=== PATIENT | male | born 1960 | race Caucasian/White ===

== ENCOUNTER 2018-05-16 06:18 | Inpatient (IN) | payer SELFPAY ==
[2018-05-16 07:06] LABS: BASOPHILS % 0.6 (0.0-1.5); EOSINOPHILS % 0.7 % (0.0-6.8); MEAN CORPUSCULAR HEMOGLOBIN 34.2 pg (28.0-34.0); MEAN CORPUSCULAR VOLUME 100.2 fl (80.0-100.0); MONOCYTES % 9.5 % (0.0-11.0); NEUTROPHILS # 4.9 # k/uL (1.4-7.7)
[2018-05-16] MEDS ORDERED: KETOROLAC TROMETHAMINE 30 MG/1ML VIAL IVP ONE (07:15)
--- NOTE | 2018-05-16 07:15 | ED Physician Documentation ---
Abdominal Pain - HISTORIAN Historian: patient - HPI Stated Complaint: abd pain Chief Complaint: Abdominal Pain Additonal Information: Diana states that his abd has been hurting since yesterday. [place] that he needed to have a BM and felt constipated. Took some Ducolax yesterday afternoon. Had 3 small BM since then. Pain is perumbilical with some up radiation into the epigastric area. Has some pain with poaking his abd. Has not had a colonoscopy, no blood in stool . No nausea noted. Onset: days ago (yesterday) Duration: constant Timing: still present Context: denies: out of country travel, bad food Severity: moderate Quality: pain, aching Associated Symptoms: none, loss of appetite. denies: fever, chills, nausea, vomiting, bloody emesis, bloody stools, grossly bloody stools Exacerbated by: movements Relieved by: nothing Further Comments: yes (history of alcoholism) - ROS CONST: no problems GI/: constipation. denies: bloody urine, bloody stools, dark urine, problems urinating MS/SKIN/LYMPH: none - SOCIAL HX Smoking History: non-smoker, chew (3/4 can/day) Alcohol Use: heavy (10-12 beer daily) Drug Use: none - FAMILY HX Family History: other (DM, HTN) - PAST HX Past History: other (EtOHism, Atrail fibrillation,) Ischemic Bowel Risk Factors: none Other History: denies: abdominal aneurysm, intestinal obstruction Surgeries/Procedures: none Immunizations: referred to PCP Home Medications: Ambulatory Orders Medication Instructions Recorded Chlordiazepoxide HCl 25 mg PO TID PRN 05/16/18 Lisinopril [Prinivil] 20 mg PO QD 05/16/18 Metoprolol Succinate [Toprol XL] 100 mg PO D 05/16/18 Warfarin Sodium [Coumadin] 5 mg PO 1800 05/16/18 Allergies/Adverse Reactions: Allergies Allergy/AdvReac Type Severity Reaction Status Date / Time No Known Allergies Allergy Verified 05/16/18 14:00 - VITAL SIGNS Vital Signs: Vital Signs Temp Pulse Resp BP Pulse Ox 97.4 F L 88 16 155/102 99 05/19/18 14:00 05/19/18 14:00 05/19/18 14:00 05/19/18 14:00 05/19/18 14:00 - REVIEWED ASSESSMENTS Nursing Assessment Reviewed: Yes Vitals Reviewed: Yes Progress - Progress Progress: 09:11 Patient is resting quietly, pain is much improved at this time. ED Results Lab/Radiology - Lab Results Lab Results: Lab Results 05/16/18 05/16/18 05/16/18 08:28 07:00 07:00 WBC 7.90 K/ul K/ul (4.00-12.00) RBC 4.21 M/ul M/ul (3.90-5.20) Hgb 14.4 g/dL g/dL (12.0-18.0) Hct 42.2 % % (37.0-53.0) MCV 100.2 fl H fl (80.0-100.0) MCH 34.2 pg H pg (28.0-34.0) MCHC 34.1 g/dL g/dL (30.0-36.0) RDW 13.3 % % (11.3-14.3) Plt Count 412 K/mm3 H K/mm3 (130-400) Neut % (Auto) 62.0 % % (39.0-79.0) Lymph % (Auto) 25.0 % % (16.0-50.0) [place] % (Auto) 9.5 % % (0.0-11.0) Eos % (Auto) 0.7 % % (0.0-6.8) Baso % (Auto) 0.6 (0.0-1.5) Neut # (Auto) 4.9 # k/uL # k/uL (1.4-7.7) Lymph # (Auto) 2.0 # k/uL # k/uL (0.6-4.0) [place] # (Auto) 0.8 # k/uL # k/uL (0.0-0.9) Eos # (Auto) 0.0 # k/uL # k/uL (0.0-0.6) Baso # (Auto) 0.0 # k/uL # k/uL (0.0-0.5) Reactive Lymphs % 2.1 % % (0.0-5.0) Reactive Lymphs # 0.2 # k/uL # k/uL (0.0-0.8) Sodium 132 mmol/L L mmol/L (136-145) Potassium 3.3 mmol/L L mmol/L (3.5-5.1) Chloride 94 mmol/L L mmol/L (98-107) Carbon Dioxide 23 mmol/L mmol/L (22-30) BUN 6 mg/dL L mg/dL (9-20) Creatinine 0.80 mg/dL mg/dL (0.66-1.25) Estimated Creat Clear 110 Est GFR ( Amer) > 60 (60 - ) Est GFR (Non-Af Amer) > 60 (60 - ) Glucose 116 mg/dL H mg/dL (74-106) Calcium 9.4 mg/dL mg/dL (8.4-10.2) Total Bilirubin 0.4 mg/dL mg/dL (0.2-1.3) AST 35 U/L U/L (15-46) ALT 37 U/L U/L (13-69) Alkaline Phosphatase 75 U/L U/L (38-126) Total Protein 7.8 g/dL g/dL (6.3-8.2) Albumin 4.2 g/dL g/dL (3.5-5.0) Lipase 26620 U/L H U/L (23-300) Urine Color Yellow (YELLOW) Urine Appearance Clear (CLEAR) Urine pH 7.5 (5.0 - 8.0) Ur Specific [place] 1.015 (1.010-1.030) Urine Protein Negative mg/dL mg/dL (NEGATIVE) Urine Ketones Negative mg/dL mg/dL (NEGATIVE) Urine Occult Blood Negative (NEGATIVE) Urine Nitrite Negative (NEGATIVE) Urine Bilirubin Negative (NEGATIVE) Urine Urobilinogen 0.2 Eu Eu (0.2-1.0) Ur Leukocyte Esterase Negative (NEGATIVE) Urine Glucose Negative mg/dL mg/dL (NEGATIVE) - Orders Orders: ED Orders Category Date Time Status ABD SERIES PA CHEST [RAD] Stat Exams 05/16/[address] ABD & PELVIS W/ CON Stat Exams 05/16/18 Completed US ABDOMEN LIMITED [US] Stat Exams 05/16/18 Completed CBC/PLATELET/DIFF Routine Lab 05/16/18 07:00 Completed CMP Routine Lab 05/16/18 07:00 Completed LIPASE Stat Lab 05/16/18 07:00 Completed UA MACRO DIP ONLY Routine Lab 05/16/18 08:28 Completed 0.9 % Sodium Chloride [Normal Saline] 1,000 ml Med 05/16/18 07:30 Discontinued IV .Q1H Ketorolac Tromethamine [Toradol] Med 05/16/18 07:15 Discontinued 30 mg IVP NOW ONE EKG WITH COMPARISON Stat Ther 05/16/18 Completed Abdominal Pain Physical Exam - Physical Exam General Appearance: alert, moderate distress EENT: no signs of dehydration NECK: normal inspection, supple RESPIRATORY: no resp distress, chest non-tender, breath sounds normal. No: wheezes, rales, rhonchi CVS: reg rate & rhythm, heart sounds normal, equal pulses. No: no murmur ABDOMEN: soft, normal bowel sounds, no distension, tenderness (epigastric and periumbilical) BACK: normal inspection, no CVA tenderness SKIN: warm/dry, normal color, cyanosis EXTREMITIES: non-tender, no edema NEURO: oriented X3, CN's nml as tested, sensation nml, cognition normal Vital Signs: Vital Signs Temp Pulse Resp BP Pulse Ox 97.4 F L 88 16 155/102 99 05/19/18 14:00 05/19/18 14:00 05/19/18 14:00 05/19/18 14:00 05/19/18 14:00 Discharge Clincal Impression: Acute pancreatitis Condition: Stable Disposition: ADMITTED INPATIENT Decision to Admit: [id number] Date of Decison to Admit: 05/16/18 Decision Time: 09:12
[2018-05-16] MEDS ORDERED: 0.9 % SODIUM CHLORIDE 1,000 ML IV ONE (07:24)
[2018-05-16 07:30] LABS: eGFR (Non-African) > 60
[2018-05-16] MEDS ORDERED: 0.9 % SODIUM CHLORIDE 1,000 ML IV SCH (07:30)
--- NOTE | 2018-05-16 09:47 | Diagnostic Imaging Report ---
TRINO RAND [facility] [address] [facility].[address] [address] Report Submission Date: May 16, 2018 9:04:16 AM CDT Patient Study Name: MAC HAYES Date: May 16, 2018 8:02:52 AM CDT Modality Type: DX Gender: M Description: ABDOMEN : 64 Institution: [facility] Physician: TRINO RAND Examination: Obstruction series History: Abdominal pain - periumbilicl (Hx) Findings: 3 views obtained of the chest and abdomen. No abnormal dilation of the large or small bowel. Air and stool throughout the large bowel. Upright film with large bowel air-fluid levels. No suspicious calcification projecting over the renal fossa or the lower pelvic region. Osseous structures are appropriate for age. A single view the chest without focal infiltrative process. Impression: Large bowel air fluid levels. No obstruction. No focal infiltrate. No suspicious calcifications by plain film sensitivity. Electronically signed on May 16, 2018 9:04:16 AM CDT by: Apollo MCCARTHY
--- NOTE | 2018-05-16 10:01 | Diagnostic Imaging Report ---
TRINO RAND [facility] [address] [facility] [address] [address] Report Submission Date: May 16, 2018 9:59:17 AM CDT Patient Study Name: MAC HAYES Date: May 16, 2018 9:32:45 AM CDT Modality Type: CT\SR Gender: M Description: CT ABD PELVIS W/ CON : 64 Institution: [facility] Physician: TRINO RAND Examination: CT Abdomen/pelvis History: ABDOMINAL PAIN; PANCREATITIS (Hx) Comparison exams: None available Technique: CT Abdomen/pelvis with IV protocol. Findings: Mesenteric inflammatory changes surrounding the pancreas. No formed fluid collection. Pericholecystic inflammatory changes. No visualized gallstone. Liver, spleen, adrenals, and kidneys are without gross irregularity given exam technique. No suspicious renal calcifications. Ureters are nondilated in their course through the abdomen and pelvis. No central calcifications. Bladder margin within normal limits. Abdominal aorta without aneurysm or peripheral atherosclerotic disease. Cardiac silhouette is not enlarged. No pericardial effusion. Bowel unopacified limiting evaluation. No abnormal dilation. Stool and air within the large bowel limiting sensitivity. No mesenteric inflammatory changes or free fluid. Appendix is visualized and is without inflammatory changes. Osseous structures demonstrate degenerative spurring. Lung bases wall demonstrate atelectasis without infiltrate. No effusion. Impression: Peripancreatic inflammatory changes - pancreatitis. No evidence for formed fluid collection/abscess. Inflammatory changes surrounding the gallbladder - possibly extension of the peripancreatic inflammation. No gallstone identified. No other acute upper abdominal organ inflammatory process. Large bowel air fluid levels without evidence for obstruction. No suspicious renal calcifications or abnormal ureteric dilation. No lung base consolidation or effusion. Electronically signed on May 16, 2018 9:59:17 AM CDT by: Apollo MCCARTHY
--- NOTE | 2018-05-16 10:50 | History and Physical Report ---
History of Present Illnes - History of Present Illness Reason for Visit: abd pain History of Present Illness: 57-year-old white male who states that yesterday afternoon he developed some diffuse abdominal pain. Patient denies any precipitating factor that he is aware. Patient that the patient has been persistent slowly getting worse since this time. Patient that the patient plainly in the. Umbilical area with some radiation into the epigastric area. Patient denies any nausea vomiting diarrhea or constipation. Patient has had any hematemesis melena hematochezia. Patient denies any fever or chills. Patient does have a history of alcoholism. Patient was recently hospitalized for new onset of atrial fibrillation. Patient has been placed on metoprolol and anticoagulant therapy.Patient was seen in the emergency room is noted to have a markedly elevated lipase. CT scan was consistent with a acute pancreatitis. Patient was subsequently admitted to the hospital for further care and evaluation. - Past Medical History Cardiac: AFIB, HTN Psych: Other (EtOHism. patient has been in a treatmnet program before. ) - Past Surgical History Past Surgical History: None - Past Family History Mother Family History: DM, (82yo, HTN) Father Family History: Other (Heart valve replacement, COPD) - Past Social History Smoke: denies: # pack years (chew 3/4 can per day) Alcohol: Heavy (10-12 beers a day) Drugs: None Lives: With Family Domestic Violence: Negative - Health Maintenance Health Maintenance: denies: Cholesterol, Influenza Vaccine, Pneumococcal Vaccine Influenza Vaccine: No Pneumonia Vaccine: No Resuscitation Status: Full code - Unable to Obtain History Unable to Obtain: No Review of Systems - Review of Systems Constitutional: negative: Fever, Chills, Sweats Eyes: negative: pain ENT: negative: Ear Pain, Ear Discharge, Nose Pain, Nose Discharge, Nose Congestion, Mouth Pain, Throat Pain, Throat Swelling Respiratory: negative: Cough, Dry, Shortness of Breath, Hemoptysis, SOB with Excertion, Pleuritic Pain, Sputum Cardiovascular: Edema (mild). negative: Chest Pain, Palpitations, Orthopnea, Paroxysmal Noc. Dyspnea, Light Headedness Gastrointestinal: Abdominal Pain. negative: Nausea, Vomiting, Diarrhea, Constipation, Hematochezia Genitourinary: negative: Dysuria, Frequency, Incontinence, Hematuria, Retention, Deferred Musculoskeletal: negative: Back Pain, Leg Pain Skin: negative: Rash Neurological: negative: Weakness, Numbness, Incoordination, Change in Speech, Confusion - Medications/Allergies Allergies/Adverse Reactions: Allergies Allergy/AdvReac Type Severity Reaction Status Date / Time No Known Allergies Allergy Verified 05/16/18 14:00 Home Medications: Home Medications Chlordiazepoxide HCl 25 mg PO TID PRN 05/16/18 Lisinopril [Prinivil] 20 mg PO QD 05/16/18 Metoprolol Succinate [Toprol XL] 100 mg PO D 05/16/18 Warfarin Sodium 2 mg PO D 05/16/18 Warfarin Sodium [Coumadin] 5 mg PO 1800 05/16/18 Current Inpatient Medications: Current Inpatient Medications Sodium Chloride (Normal Saline) 1,000 mls @ 1,000 mls/hr IV .Q1H ROSEMARY Last Admin: 05/16/18 07:15 Dose: 1,000 mls/hr Exam - Exam Vital Signs: Vital Signs (72 hours) 05/16/18 07:13 Temperature 97.3 F L Pulse Rate [ 108 H Pulse ox] Respiratory 22 Rate Blood Pressure 131/97 [Left Arm] O2 Sat by Pulse 100 Oximetry General: Alert, Oriented to Person, Oriented to Place, Oriented to Time, Cooperative, Moderate distress HEENT: Atraumatic, PERRLA, EOMI, Mouth Mucous membr. moist/[place], Nose Mucous membr. moist/[place], Hearing Grossly Normal Neck: Normal Range of Motion Carotids: WNL Thyroid: WNL Lungs: Clear to auscultation, Normal air movement, Speaks full Sentences Cardiovascular: Regular rate, Normal S1, Normal S2, No murmurs Abdomen: Soft, No hepatospenomegaly, No masses, Other (tender in the epigastric area and periumbilical area), Decreased Bowel Sounds. No: Distended Integumentary: Normal, [place], Warm, Dry Extremities: No clubbing, No cyanosis, No edema, Normal pulses, No tenderness/sw elling Neurological: Normal gait, Normal speech, Strength Equal Bilat, Normal tone, Sensation intact, Cranial nerves 3-12 NL, Reflexes 2+ Psych/Mental Status: Mental status NL, Mood NL, Appropriate Affect, Intact Judgment - Laboratory Results Laboratory Results: Laboratory Results 05/16/18 05/16/18 07:00 07:00 WBC 7.90 RBC 4.21 Hgb 14.4 Hct 42.2 MCV 100.2 H MCH 34.2 H MCHC 34.1 RDW 13.3 Plt Count 412 H Neut % (Auto) 62.0 Lymph % (Auto) 25.0 [place] % (Auto) 9.5 Eos % (Auto) 0.7 Baso % (Auto) 0.6 Neut # (Auto) 4.9 Lymph # (Auto) 2.0 [place] # (Auto) 0.8 Eos # (Auto) 0.0 Baso # (Auto) 0.0 Reactive Lymphs % 2.1 Reactive Lymphs # 0.2 Sodium 132 L Potassium 3.3 L Chloride 94 L Carbon Dioxide 23 BUN 6 L Creatinine 0.80 Estimated Creat Clear 110 Est GFR ( Amer) > 60 Est GFR (Non-Af Amer) > 60 Glucose 116 H Calcium 9.4 Total Bilirubin 0.4 AST 35 ALT 37 Alkaline Phosphatase 75 Total Protein 7.8 Albumin 4.2 Lipase 79295 H Assessment/Plan - Assessment/Plan (1) Acute pancreatitis Status: Acute Current Visit: Yes Assessment: Patient place NPO [place] criteria1. Will rechech, amylase, lipase in AM. Check lipids. toradol seems to work well for pain (2) Essential hypertension Status: Chronic Current Visit: Yes Assessment: continue home meds (3) Alcohol dependence Status: Chronic Current Visit: Yes Assessment: patient will be monitored for alsohol withdrwal (4) Hypokalemia Status: Acute Current Visit: Yes Assessment: add potassium in IV VTE Assessment - RISK FACTOR SCORE VTE RISK FACTOR SCORES: AGE 40-60 YEARS, ANTICIPATED BED CONFINEMENT OR IMMOBILIZATION > 24 HOURS - RISK VTE MODERATE RISK: SCORE OF 2 (RISK PROXIMAL DVT 2-4%) PROPHYAXIS NEEDED
[2018-05-16] MEDS ORDERED: LORazepam 2 MG/ML VIAL IVP PRN (11:07)
[2018-05-16] MEDS: LISINOPRIL 20 MG TABLET PO SCH (11:21)
[2018-05-16] MEDS: ENOXAPARIN SODIUM 30 MG/0.3 ML DISP.SYRIN SQ SCH (11:22)
--- NOTE | 2018-05-16 11:48 | Diagnostic Imaging Report ---
TRINO RAND [facility] [address] [facility].[address] [address] Report Submission Date: May 16, 2018 10:54:58 AM CDT Patient Study Name: MAC HAYES Date: May 16, 2018 10:26:01 AM CDT Modality Type: US Gender: M Description: RUQ : 64 Institution: [facility] Physician: TRINO RAND Examination: Ultrasound right upper quadrant. History: RUQ US - HX OF ALCOHOLISM - R/O PANCREATITIS Findings: Sonographic evaluation of the right upper quadrant demonstrates the gallbladder without stones or sludge. Gallbladder wall measures 1.9 mm. Common bile duct wall not measured. No intrahepatic biliary dilation. Liver demonstrates increased echogenicity. No mass or cyst. Normal flow on color analysis. Normal portal vein Doppler waveform. Right kidney measures 10.1 cm in length. No cortical mass or cyst. No hydronephrosis. Pancreatic region without gross irregularity. Impression: No gallstone. Fatty liver. Electronically signed on May 16, 2018 10:54:58 AM CDT by: Apollo MCCARTHY
[2018-05-16] MEDS ORDERED: THIAMINE HCL 100 MG, MULTIVIT INFUSN,ADULT 1,VIT K 10 ML, FOLIC ACID 5 MG in 0.9 % SODI... IV SCH (13:00)
[2018-05-16] MEDS: LORazepam 2 MG/ML VIAL IVP SCH ×6 (14:00→23:23)
[2018-05-16] MEDS ORDERED: PANTOPRAZOLE SODIUM INJ. 40 MG VIAL ONE (14:02)
[2018-05-16] MEDS ORDERED: POTASSIUM CHLORIDE 20 MEQ/NS 1,000 ML IV ONE (14:48)
[2018-05-16] MEDS: THIAMINE HCL 100 MG, MULTIVIT INFUSN,ADULT 1,VIT K 10 ML, FOLIC ACID 5 MG in 0.9 % SODI... IV SCH (15:00)
[2018-05-16 15:22] VITALS: BMI 22.6
[2018-05-16] MEDS: PANTOPRAZOLE SODIUM 40 MG in 0.9 % SODIUM CHLORIDE 50 ML IV SCH (16:33)
[2018-05-16 17:26] LABS: APPEARANCE,URINE CLEAR (CLEAR); COLOR,URINE YELLOW (YELLOW); OCCULT BLOOD,URINE NEGATIVE (NEGATIVE); PH URINE 7.5 (5.0 - 8.0); UROBILINOGEN URINE 0.2 Eu (0.2-1.0)
[2018-05-16] MEDS ORDERED: WARFARIN SODIUM 5 MG TABLET PO SCH (18:00)
[2018-05-16] MEDS ORDERED: WARFARIN SODIUM 1 MG TABLET PO SCH (18:00)
[2018-05-16] MEDS: METOPROLOL TARTRATE 50 MG TABLET PO SCH (20:40)
[2018-05-16] MEDS: 0.9 % SODIUM CHLORIDE 1,000 ML with POTASSIUM CHLORIDE 20 MEQ IV SCH ×2 (22:30)
[2018-05-17] MEDS: LORazepam 2 MG/ML VIAL IVP SCH ×12 (01:07→22:28)
[2018-05-17] MEDS ORDERED: POTASSIUM CHLORIDE 20 MEQ/NS 1,000 ML IV ONE (06:33)
[2018-05-17] MEDS: 0.9 % SODIUM CHLORIDE 1,000 ML with POTASSIUM CHLORIDE 20 MEQ IV SCH ×2 (06:38)
[2018-05-17 06:52] LABS: BASOPHILS % 0.9 (0.0-1.5); EOSINOPHILS % 1.5 % (0.0-6.8); MEAN CORPUSCULAR VOLUME 107.9 fl (80.0-100.0); MONOCYTES % 9.3 % (0.0-11.0)
[2018-05-17 07:44] LABS: eGFR (Non-African) > 60
[2018-05-17] MEDS ORDERED: PANTOPRAZOLE SODIUM INJ. 40 MG VIAL ONE (07:52)
[2018-05-17] MEDS: METOPROLOL TARTRATE 50 MG TABLET PO SCH ×2 (09:41→20:15)
[2018-05-17] MEDS: PANTOPRAZOLE SODIUM 40 MG in 0.9 % SODIUM CHLORIDE 50 ML IV SCH (09:42)
[2018-05-17] MEDS: ENOXAPARIN SODIUM 30 MG/0.3 ML DISP.SYRIN SQ SCH (11:14)
[2018-05-17] MEDS: LISINOPRIL 20 MG TABLET PO SCH (11:38)
[2018-05-17] MEDS: THIAMINE HCL 100 MG, MULTIVIT INFUSN,ADULT 1,VIT K 10 ML, FOLIC ACID 5 MG in 0.9 % SODI... IV SCH (13:00)
[2018-05-18] MEDS ORDERED: NS IV ONE (00:19)
[2018-05-18] MEDS ORDERED: POTASSIUM CHLORIDE IV ONE (00:19)
[2018-05-18] MEDS: LORazepam 2 MG/ML VIAL IVP SCH ×12 (00:34→22:57)
[2018-05-18] MEDS: KETOROLAC TROMETHAMINE 30 MG/1ML VIAL IVP PRN ×2 (00:34→21:49)
[2018-05-18] MEDS: 0.9 % SODIUM CHLORIDE 1,000 ML with POTASSIUM CHLORIDE 20 MEQ IV SCH ×2 (00:39)
[2018-05-18 06:40] LABS: eGFR (Non-African) > 60
[2018-05-18] MEDS ORDERED: PANTOPRAZOLE SODIUM INJ. 40 MG VIAL ONE (08:17)
[2018-05-18] MEDS ORDERED: POTASSIUM CHLORIDE 20 MEQ/NS 1,000 ML IV ONE (09:25)
[2018-05-18] MEDS ORDERED: 0.9 % SODIUM CHLORIDE 1,000 ML IV ONE (09:40)
[2018-05-18] MEDS: METOPROLOL TARTRATE 50 MG TABLET PO SCH ×2 (09:42→20:18)
[2018-05-18] MEDS: PANTOPRAZOLE SODIUM 40 MG in 0.9 % SODIUM CHLORIDE 50 ML IV SCH (09:43)
[2018-05-18] MEDS ORDERED: 0.9 % SODIUM CHLORIDE 250 ML IV.SOLN IV SCH (10:00)
[2018-05-18] MEDS: 0.9 % SODIUM CHLORIDE 1,000 ML IV SCH (10:18)
[2018-05-18] MEDS: LISINOPRIL 20 MG TABLET PO SCH (12:01)
[2018-05-18] MEDS: THIAMINE HCL 100 MG, MULTIVIT INFUSN,ADULT 1,VIT K 10 ML, FOLIC ACID 5 MG in 0.9 % SODI... IV SCH (13:44)
[2018-05-18 17:16] LABS: APPEARANCE,URINE CLEAR (CLEAR); COLOR,URINE YELLOW (YELLOW); OCCULT BLOOD,URINE NEGATIVE (NEGATIVE); PH URINE 5.5 (5.0 - 8.0); UROBILINOGEN URINE 0.2 Eu (0.2-1.0)
[2018-05-19] MEDS: LORazepam 2 MG/ML VIAL IVP SCH ×8 (00:24→13:24)
[2018-05-19] MEDS: 0.9 % SODIUM CHLORIDE 1,000 ML IV SCH (02:04)
[2018-05-19 07:42] LABS: eGFR (Non-African) > 60
[2018-05-19] MEDS ORDERED: PANTOPRAZOLE SODIUM INJ. 40 MG VIAL ONE (07:58)
[2018-05-19] MEDS: PANTOPRAZOLE SODIUM 40 MG in 0.9 % SODIUM CHLORIDE 50 ML IV SCH (08:06)
[2018-05-19] MEDS: METOPROLOL TARTRATE 50 MG TABLET PO SCH (08:06)
[2018-05-19] MEDS: LISINOPRIL 20 MG TABLET PO SCH (12:32)
[2018-05-19 14:20] VITALS: BP 155/102
[2018-05-19] MEDS ORDERED: WARFARIN SODIUM 5 MG TABLET PO SCH (18:00)
--- NOTE | 2018-05-22 08:36 | Discharge Summary ---
Discharge Summary - Discharge Sumary History of Present Illness: 57-year-old white male who states that yesterday afternoon he developed some diffuse abdominal pain. Patient denies any precipitating factor that he is aware. Patient that the patient has been persistent slowly getting worse since this time. Patient that the patient plainly in the. Umbilical area with some radiation into the epigastric area. Patient denies any nausea vomiting diarrhea or constipation. Patient has had any hematemesis melena hematochezia. Patient denies any fever or chills. Patient does have a history of alcoholism. Patient was recently hospitalized for new onset of atrial fibrillation. Patient has been placed on metoprolol and anticoagulant therapy.Patient was seen in the emergency room is noted to have a markedly elevated lipase. CT scan was consistent with a acute pancreatitis. Patient was subsequently admitted to the hospital for further care and evaluation. Condition at Discharge: Stable Home Medications: Ambulatory Orders Medication Instructions Recorded Chlordiazepoxide HCl 25 mg PO TID PRN 05/16/18 Lisinopril [Prinivil] 20 mg PO QD 05/16/18 Metoprolol Succinate [Toprol XL] 100 mg PO D 05/16/18 Warfarin Sodium [Coumadin] 5 mg PO 1800 05/16/18 Consultations this Visit: None Procedures this Visit: None Allergies/Adverse Reactions: Allergies Allergy/AdvReac Type Severity Reaction Status Date / Time No Known Allergies Allergy Verified 05/16/18 14:00 Discharge Summary: Patient was admitted to the hospital and started on IV fluids for hydration maintenance. Patient pancreatitis was followed along with lipase. For the first 48 hours lipase is not improve much but on the day of admission it did increase to 15,910. Because we did not have much improvement in the patient lipase during the first 36 hours I did talk to a assistant professor of anthropology. He is vied to the long the patient symptoms were improving that his pancreatitis was probably improving also. At the time to discharge patient was having very little abdominal pain. Patient was tolerated diet without any increased nausea or abdominal pain. On admission patient was placed on alcohol withdrawal protocol. Patient required very little medication to control his alcohol withdrawal symptoms. Patient has a history of atrial fibrillation. Patient was in a normal sinus rhythm on admission to the hospital. Patient INR was super therapeutic on admission at 4.74. His Coumadin was held. At the time of dismissal patient INR was 2.7. At the time of dismissal was felt that the patient was stable enough that he could be discharged home and followed up on an outpatient basis by his primary care provider. Patient will probably need a follow-up CT scan and lab work. Patient was told of the importance of not drinking any further alcohol. Patient was advised that if this abdominal pain got worse before he was seen by his primary care provider choose be seen in an ED. - Final Diagnosis (1) Acute pancreatitis Problems: improved (2) Essential hypertension Problems: stable on home medications (3) Alcohol dependence Problems: stable with minimal withdrawal symptoms (4) Hypokalemia Problems: resolved
--- NOTE | 2018-05-25 07:42 | Inpatient Progress Note ---
Subjective - Required Recertification Statement I anticipate X number of days because-include discharge plan: 2 days - Review of Systems Subjective: Patient abdominal pain has greatly improved over the last 24 hours. Patient still requiring some pain medication. Patient is not had any further nausea vomiting. Patient denies any fever or chills. Patient has been ambulating. Patient seemed to be withdrawing from the alcohol without much difficulties at this time. Objective - Exam Vitals and I&O: Vital Signs Temp 97.4 F L 05/19/18 14:00 Pulse 88 05/19/18 14:00 Resp 16 05/19/18 14:00 BP 155/102 05/19/18 14:00 Pulse Ox 99 05/19/18 14:00 General: Alert, Oriented to Person HEENT: Atraumatic, PERRLA, EOMI, Mouth Mucous membr. moist/[place], Nose Mucous membr. moist/[place] Neck: Supple, No JVD, No thyromegaly Lungs: Clear to auscultation, Normal air movement, Speaks full Sentences Cardiovascular: Regular rate, Normal S1, Normal S2, No murmurs Abdomen: Normal bowel sounds, Soft, No hepatospenomegaly, No masses, Other (mild to moderate tenderness to the epigastric and upper abdominal area. No guarding or rebound tenderness noted.) Skin: Normal, [place], Warm, Dry Neurological: Normal gait, Normal speech, Strength Equal Bilat, Normal tone, Sensation intact, Cranial nerves 3-12 NL, Reflexes 2+ Psych/Mental Status: Mental status NL, Mood NL, Appropriate Affect, Intact Judgment - Results Results: Laboratory Results WBC 6.10 K/ul (4.00-12.00) 05/17/18 06:30 RBC 3.94 M/ul (3.90-5.20) 05/17/18 06:30 Hgb 13.4 g/dL (12.0-18.0) 05/17/18 06:30 Hct 42.5 % (37.0-53.0) 05/17/18 06:30 MCV 107.9 fl (80.0-100.0) H 05/17/18 06:30 MCH 34.0 pg (28.0-34.0) 05/17/18 06:30 MCHC 31.5 g/dL (30.0-36.0) 05/17/18 06:30 RDW 13.2 % (11.3-14.3) 05/17/18 06:30 Plt Count 327 K/mm3 (130-400) 05/17/18 06:30 Neut % (Auto) 65.5 % (39.0-79.0) 05/17/18 06:30 Lymph % (Auto) 21.1 % (16.0-50.0) 05/17/18 06:30 [place] % (Auto) 9.3 % (0.0-11.0) 05/17/18 06:30 Eos % (Auto) 1.5 % (0.0-6.8) 05/17/18 06:30 Baso % (Auto) 0.9 (0.0-1.5) 05/17/18 06:30 Neut # (Auto) 4.0 # k/uL (1.4-7.7) 05/17/18 06:30 Lymph # (Auto) 1.3 # k/uL (0.6-4.0) 05/17/18 06:30 [place] # (Auto) 0.6 # k/uL (0.0-0.9) 05/17/18 06:30 Eos # (Auto) 0.1 # k/uL (0.0-0.6) 05/17/18 06:30 Baso # (Auto) 0.1 # k/uL (0.0-0.5) 05/17/18 06:30 Reactive Lymphs % 1.7 % (0.0-5.0) 05/17/18 06:30 Reactive Lymphs # 0.1 # k/uL (0.0-0.8) 05/17/18 06:30 PT 28.9 Seconds (9.4-11.6) H 05/18/18 05:30 INR 2.72 (0.9-1.2) H 05/18/18 05:30 Sodium 135 mmol/L (136-145) L 05/19/18 05:30 Potassium 3.6 mmol/L (3.5-5.1) 05/19/18 05:30 Chloride 100 mmol/L (98-107) 05/19/18 05:30 Carbon Dioxide 22 mmol/L (22-30) 05/19/18 05:30 BUN 4 mg/dL (9-20) L 05/19/18 05:30 Creatinine 0.70 mg/dL (0.66-1.25) 05/19/18 05:30 Estimated Creat Clear 127 05/19/18 05:30 Est GFR ( Amer) > 60 (60-) 05/19/18 05:30 Est GFR (Non-Af Amer) > 60 (60-) 05/19/18 05:30 Glucose 93 mg/dL (74-106) 05/19/18 05:30 Calcium 8.5 mg/dL (8.4-10.2) 05/19/18 05:30 Total Bilirubin 1.7 mg/dL (0.2-1.3) H 05/19/18 05:30 AST 87 U/L (15-46) H 05/19/18 05:30 ALT 44 U/L (13-69) 05/19/18 05:30 Alkaline Phosphatase 243 U/L (38-126) H 05/19/18 05:30 Total Protein 7.6 g/dL (6.3-8.2) 05/19/18 05:30 Albumin 4.0 g/dL (3.5-5.0) 05/19/18 05:30 Triglycerides 90 mg/dL (<150) 05/17/18 06:30 Cholesterol 179 mg/dL (<200) 05/17/18 06:30 LDL Cholesterol, Calc 108 mg/dL (<130) 05/17/18 06:30 HDL Cholesterol 53 mg/dL (>=40) 05/17/18 06:30 LDL/HDL Ratio 2.04 (3.55) 05/17/18 06:30 Cholesterol/HDL Ratio 3.38 (5.00) 05/17/18 06:30 Lipid Phenotype Normal 05/17/18 06:30 Lipase 53005 U/L (23-300) H 05/19/18 05:30 Urine Color Yellow (YELLOW) 05/18/18 15:11 Urine Appearance Clear (CLEAR) 05/18/18 15:11 Urine pH 5.5 (5.0 - 8.0) 05/18/18 15:11 Ur Specific [place] 1.010 (1.010-1.030) 05/18/18 15:11 Urine Protein Negative mg/dL (NEGATIVE) 05/18/18 15:11 Urine Ketones 1+ mg/dL (NEGATIVE) H 05/18/18 15:11 Urine Occult Blood Negative (NEGATIVE) 05/18/18 15:11 Urine Nitrite Negative (NEGATIVE) 05/18/18 15:11 Urine Bilirubin Negative (NEGATIVE) 05/18/18 15:11 Urine Urobilinogen 0.2 Eu (0.2-1.0) 05/18/18 15:11 Ur Leukocyte Esterase Negative (NEGATIVE) 05/18/18 15:11 Urine Glucose Negative mg/dL (NEGATIVE) 05/18/18 15:11 Assessment/Plan - Assessment/Plan (1) Acute pancreatitis Status: Acute Assessment: Lipase has increased to 19,180. Patient pain does seem to be improving. Patient is afebrile. Abdominal exam is fairly benign at this time other than some mild discomfort to the palpation. (2) Essential hypertension Status: Chronic Assessment: Stable on home medications. (3) Alcohol dependence Status: Chronic Assessment: Patient appeared to be withdrawing without any significant problems. (4) Hypokalemia Status: Acute Narrative Support Text: Potassium has improved to 3.4.
--- NOTE | 2018-05-25 07:42 | Inpatient Progress Note ---
Subjective - Required Recertification Statement I anticipate X number of days because-include discharge plan: 1 day - Review of Systems Events since last encounter: Patient stated is abdominal pain has improved and just having minimal discomfort at this time. As long as he remains still is not have any pain. Patient is not had any nausea or vomiting. Patient is tolerating IV fluids well. No fever or chills have been noted. Vital signs a remain stable. Patient is not have any significant withdrawals symptoms from alcohol at this time. Hypertension has been stable. Objective - Exam Vitals and I&O: Vital Signs Temp 97.4 F L 05/19/18 14:00 Pulse 88 05/19/18 14:00 Resp 16 05/19/18 14:00 BP 155/102 05/19/18 14:00 Pulse Ox 99 05/19/18 14:00 General: Alert, Oriented to Person, Oriented to Place, Oriented to Time, Cooperative HEENT: Atraumatic, PERRLA, EOMI, Mouth Mucous membr. moist/[place] Neck: Supple, No JVD, No thyromegaly Lungs: Clear to auscultation, Normal air movement, Speaks full Sentences. No: Wheezes, Rales, Rhonchi Cardiovascular: Regular rate, Normal S1, Normal S2, No murmurs Abdomen: Normal bowel sounds, Soft, No hepatospenomegaly, No masses Extremities: No edema Skin: Normal, [place], Warm, Dry Neurological: Normal gait, Normal speech, Normal tone Psych/Mental Status: Mental status NL, Mood NL, Appropriate Affect, Intact Judgment - Results Results: Laboratory Results WBC 6.10 K/ul (4.00-12.00) 05/17/18 06:30 RBC 3.94 M/ul (3.90-5.20) 05/17/18 06:30 Hgb 13.4 g/dL (12.0-18.0) 05/17/18 06:30 Hct 42.5 % (37.0-53.0) 05/17/18 06:30 MCV 107.9 fl (80.0-100.0) H 05/17/18 06:30 MCH 34.0 pg (28.0-34.0) 05/17/18 06:30 MCHC 31.5 g/dL (30.0-36.0) 05/17/18 06:30 RDW 13.2 % (11.3-14.3) 05/17/18 06:30 Plt Count 327 K/mm3 (130-400) 05/17/18 06:30 Neut % (Auto) 65.5 % (39.0-79.0) 05/17/18 06:30 Lymph % (Auto) 21.1 % (16.0-50.0) 05/17/18 06:30 [place] % (Auto) 9.3 % (0.0-11.0) 05/17/18 06:30 Eos % (Auto) 1.5 % (0.0-6.8) 05/17/18 06:30 Baso % (Auto) 0.9 (0.0-1.5) 05/17/18 06:30 Neut # (Auto) 4.0 # k/uL (1.4-7.7) 05/17/18 06:30 Lymph # (Auto) 1.3 # k/uL (0.6-4.0) 05/17/18 06:30 [place] # (Auto) 0.6 # k/uL (0.0-0.9) 05/17/18 06:30 Eos # (Auto) 0.1 # k/uL (0.0-0.6) 05/17/18 06:30 Baso # (Auto) 0.1 # k/uL (0.0-0.5) 05/17/18 06:30 Reactive Lymphs % 1.7 % (0.0-5.0) 05/17/18 06:30 Reactive Lymphs # 0.1 # k/uL (0.0-0.8) 05/17/18 06:30 PT 28.9 Seconds (9.4-11.6) H 05/18/18 05:30 INR 2.72 (0.9-1.2) H 05/18/18 05:30 Sodium 135 mmol/L (136-145) L 05/19/18 05:30 Potassium 3.6 mmol/L (3.5-5.1) 05/19/18 05:30 Chloride 100 mmol/L (98-107) 05/19/18 05:30 Carbon Dioxide 22 mmol/L (22-30) 05/19/18 05:30 BUN 4 mg/dL (9-20) L 05/19/18 05:30 Creatinine 0.70 mg/dL (0.66-1.25) 05/19/18 05:30 Estimated Creat Clear 127 05/19/18 05:30 Est GFR ( Amer) > 60 (60-) 05/19/18 05:30 Est GFR (Non-Af Amer) > 60 (60-) 05/19/18 05:30 Glucose 93 mg/dL (74-106) 05/19/18 05:30 Calcium 8.5 mg/dL (8.4-10.2) 05/19/18 05:30 Total Bilirubin 1.7 mg/dL (0.2-1.3) H 05/19/18 05:30 AST 87 U/L (15-46) H 05/19/18 05:30 ALT 44 U/L (13-69) 05/19/18 05:30 Alkaline Phosphatase 243 U/L (38-126) H 05/19/18 05:30 Total Protein 7.6 g/dL (6.3-8.2) 05/19/18 05:30 Albumin 4.0 g/dL (3.5-5.0) 05/19/18 05:30 Triglycerides 90 mg/dL (<150) 05/17/18 06:30 Cholesterol 179 mg/dL (<200) 05/17/18 06:30 LDL Cholesterol, Calc 108 mg/dL (<130) 05/17/18 06:30 HDL Cholesterol 53 mg/dL (>=40) 05/17/18 06:30 LDL/HDL Ratio 2.04 (3.55) 05/17/18 06:30 Cholesterol/HDL Ratio 3.38 (5.00) 05/17/18 06:30 Lipid Phenotype Normal 05/17/18 06:30 Lipase 75946 U/L (23-300) H 05/19/18 05:30 Urine Color Yellow (YELLOW) 05/18/18 15:11 Urine Appearance Clear (CLEAR) 05/18/18 15:11 Urine pH 5.5 (5.0 - 8.0) 05/18/18 15:11 Ur Specific [place] 1.010 (1.010-1.030) 05/18/18 15:11 Urine Protein Negative mg/dL (NEGATIVE) 05/18/18 15:11 Urine Ketones 1+ mg/dL (NEGATIVE) H 05/18/18 15:11 Urine Occult Blood Negative (NEGATIVE) 05/18/18 15:11 Urine Nitrite Negative (NEGATIVE) 05/18/18 15:11 Urine Bilirubin Negative (NEGATIVE) 05/18/18 15:11 Urine Urobilinogen 0.2 Eu (0.2-1.0) 05/18/18 15:11 Ur Leukocyte Esterase Negative (NEGATIVE) 05/18/18 15:11 Urine Glucose Negative mg/dL (NEGATIVE) 05/18/18 15:11 Assessment/Plan - Assessment/Plan (1) Acute pancreatitis Status: Acute Assessment: [place] today has improved slightly to 18,600. Clinically patient continues to improve. Patient is having minimal pain at this time. (2) Essential hypertension Status: Chronic Assessment: stable (3) Alcohol dependence Status: Chronic Assessment: stable (4) Hypokalemia Status: Acute Assessment: resloved
--- NOTE | 2018-05-25 07:44 | Inpatient Progress Note ---
Subjective - Required Recertification Statement I anticipate X number of days because-include discharge plan: 1 day - Review of Systems Events since last encounter: Patient stated he continued to do well. Patient is having the minimal pain at this time. Patient has been tolerating a clear liquid diet. Patient is not had any nausea vomiting. No fever or chills noted. Patient is having minimal alcohol withdrawal symptoms at this time. Pulmonary: Denies: Dyspnea, Cough Gastrointestinal: Abdominal Pain (minimal). Denies: Nausea, Vomiting Genitourinary: Denies: Dysuria Objective - Exam Vitals and I&O: Vital Signs Temp 97.4 F L 05/19/18 14:00 Pulse 88 05/19/18 14:00 Resp 16 05/19/18 14:00 BP 155/102 05/19/18 14:00 Pulse Ox 99 05/19/18 14:00 General: Alert, Oriented to Person, Oriented to Place, Oriented to Time, Cooperative, No acute distress Neck: Supple Lungs: Clear to auscultation, Normal air movement, Speaks full Sentences. No: Wheezes, Rales, Rhonchi Cardiovascular: Regular rate, Normal S1, Normal S2, No murmurs Abdomen: Normal bowel sounds, Soft, No masses, Other (mild upper abd tendeerness to deep palpation) Skin: Normal, [place], Warm Neurological: Normal gait, Normal speech, Strength Equal Bilat, Normal tone, Sensation intact, Cranial nerves 3-12 NL, Other (no tremors noted) Psych/Mental Status: Mental status NL, Mood NL, Appropriate Affect - Results Results: Laboratory Results WBC 6.10 K/ul (4.00-12.00) 05/17/18 06:30 RBC 3.94 M/ul (3.90-5.20) 05/17/18 06:30 Hgb 13.4 g/dL (12.0-18.0) 05/17/18 06:30 Hct 42.5 % (37.0-53.0) 05/17/18 06:30 MCV 107.9 fl (80.0-100.0) H 05/17/18 06:30 MCH 34.0 pg (28.0-34.0) 05/17/18 06:30 MCHC 31.5 g/dL (30.0-36.0) 05/17/18 06:30 RDW 13.2 % (11.3-14.3) 05/17/18 06:30 Plt Count 327 K/mm3 (130-400) 05/17/18 06:30 Neut % (Auto) 65.5 % (39.0-79.0) 05/17/18 06:30 Lymph % (Auto) 21.1 % (16.0-50.0) 05/17/18 06:30 [place] % (Auto) 9.3 % (0.0-11.0) 05/17/18 06:30 Eos % (Auto) 1.5 % (0.0-6.8) 05/17/18 06:30 Baso % (Auto) 0.9 (0.0-1.5) 05/17/18 06:30 Neut # (Auto) 4.0 # k/uL (1.4-7.7) 05/17/18 06:30 Lymph # (Auto) 1.3 # k/uL (0.6-4.0) 05/17/18 06:30 [place] # (Auto) 0.6 # k/uL (0.0-0.9) 05/17/18 06:30 Eos # (Auto) 0.1 # k/uL (0.0-0.6) 05/17/18 06:30 Baso # (Auto) 0.1 # k/uL (0.0-0.5) 05/17/18 06:30 Reactive Lymphs % 1.7 % (0.0-5.0) 05/17/18 06:30 Reactive Lymphs # 0.1 # k/uL (0.0-0.8) 05/17/18 06:30 PT 28.9 Seconds (9.4-11.6) H 05/18/18 05:30 INR 2.72 (0.9-1.2) H 05/18/18 05:30 Sodium 135 mmol/L (136-145) L 05/19/18 05:30 Potassium 3.6 mmol/L (3.5-5.1) 05/19/18 05:30 Chloride 100 mmol/L (98-107) 05/19/18 05:30 Carbon Dioxide 22 mmol/L (22-30) 05/19/18 05:30 BUN 4 mg/dL (9-20) L 05/19/18 05:30 Creatinine 0.70 mg/dL (0.66-1.25) 05/19/18 05:30 Estimated Creat Clear 127 05/19/18 05:30 Est GFR ( Amer) > 60 (60-) 05/19/18 05:30 Est GFR (Non-Af Amer) > 60 (60-) 05/19/18 05:30 Glucose 93 mg/dL (74-106) 05/19/18 05:30 Calcium 8.5 mg/dL (8.4-10.2) 05/19/18 05:30 Total Bilirubin 1.7 mg/dL (0.2-1.3) H 05/19/18 05:30 AST 87 U/L (15-46) H 05/19/18 05:30 ALT 44 U/L (13-69) 05/19/18 05:30 Alkaline Phosphatase 243 U/L (38-126) H 05/19/18 05:30 Total Protein 7.6 g/dL (6.3-8.2) 05/19/18 05:30 Albumin 4.0 g/dL (3.5-5.0) 05/19/18 05:30 Triglycerides 90 mg/dL (<150) 05/17/18 06:30 Cholesterol 179 mg/dL (<200) 05/17/18 06:30 LDL Cholesterol, Calc 108 mg/dL (<130) 05/17/18 06:30 HDL Cholesterol 53 mg/dL (>=40) 05/17/18 06:30 LDL/HDL Ratio 2.04 (3.55) 05/17/18 06:30 Cholesterol/HDL Ratio 3.38 (5.00) 05/17/18 06:30 Lipid Phenotype Normal 05/17/18 06:30 Lipase 16063 U/L (23-300) H 05/19/18 05:30 Urine Color Yellow (YELLOW) 05/18/18 15:11 Urine Appearance Clear (CLEAR) 05/18/18 15:11 Urine pH 5.5 (5.0 - 8.0) 05/18/18 15:11 Ur Specific [place] 1.010 (1.010-1.030) 05/18/18 15:11 Urine Protein Negative mg/dL (NEGATIVE) 05/18/18 15:11 Urine Ketones 1+ mg/dL (NEGATIVE) H 05/18/18 15:11 Urine Occult Blood Negative (NEGATIVE) 05/18/18 15:11 Urine Nitrite Negative (NEGATIVE) 05/18/18 15:11 Urine Bilirubin Negative (NEGATIVE) 05/18/18 15:11 Urine Urobilinogen 0.2 Eu (0.2-1.0) 05/18/18 15:11 Ur Leukocyte Esterase Negative (NEGATIVE) 05/18/18 15:11 Urine Glucose Negative mg/dL (NEGATIVE) 05/18/18 15:11 Assessment/Plan - Assessment/Plan (1) Acute pancreatitis Status: Acute Assessment: Patient lipases down to 15,900. However patient has had mild increase in his liver function tests. I've talk to a breakfast host about the patient. The feelings are lungs is lipases heading down and his pain symptoms seem to be improved and he tolerated the diet is be safe to discharge him home and have him follow up with his local primary care physician. The plan is to discharge him tomorrow. (2) Essential hypertension Status: Chronic (3) Alcohol dependence Status: Chronic Assessment: stable (4) Hypokalemia Status: Acute Plan: resolved (5) Alcohol withdrawal Status: Acute Assessment: minimal symptoms at this time
== END 2018-05-19 14:45 | disposition home or self-care (01) | DRG 440 ==
LOC: ED 06:18 → SOUTH 10:44
PROVIDERS: ADMIT Family Medicine; ATTEND Family Medicine
DX: K85.90 Acute pancreatitis without necrosis or infection, unspecified (principal); F10.20 Alcohol dependence, uncomplicated; E87.6 Hypokalemia; I10 Essential (primary) hypertension; I48.91 Unspecified atrial fibrillation; Z79.01 Long term (current) use of anticoagulants
CPT/HCPCS: 74022; 74177; 76705; 80053; 80061; 81002; 83690; 85025; 85610; 93005; J1650; J1885; J3411; J3480; J3490; J7030; 96365; 96375; 99222; 99232; 99238; S1016